=== PATIENT | male | born 1965 | race Caucasian/White ===

== ENCOUNTER 2020-12-22 21:41 | Emergency (ER) | payer OTHER ==
[~2020-12-22] VITALS: Ht 182.9 cm; Wt 108.9 kg
[2020-12-22 21:49] VITALS: BP 156/89
--- NOTE | 2020-12-22 21:54 | NUR ---
PT AMBULATED TO BED 3
--- NOTE | 2020-12-22 22:10 | NUR ---
55 Y/O MALE PRESENTS TO THE ED WITH COMPLAINTS OF LEFT EYE DISCHARGE. PT REPORTS THAT IT HAPPENED 2 HOURS AGO. PT REPORTS PUT IN EYE DROPS BUT CANNOT RECALL THE MEDICATION. LEFT EYE IS RED, HAS DISCHARGED, AND SWOLLEN. PT REPORT NO PAIN. PMH: HYPERTENSION ALLERGIES: NKA
[2020-12-22] MEDS ORDERED: POLY10SO OP (22:46)
[2020-12-22 22:58] VITALS: BP 156/89
--- NOTE | 2020-12-22 22:58 | NUR ---
Patient discharged with v/s stable. Written and verbal after care instructions given and explained. Patient alert, oriented and verbalized understanding of instructions. Ambulatory with steady gait. All questions addressed prior to discharge. ID band removed. Patient advised to follow up with PMD. Rx of POLYTRIM EYE DROPS given. Patient educated on indication of medication including possible reaction and side effects. Opportunity to ask questions provided and answered.
== END 2020-12-22 22:58 | disposition home or self-care (01) ==
LOC: MED 21:41
DX: H11.422 Conjunctival edema, left eye (principal); B96.89 Other specified bacterial agents as the cause of diseases classified elsewhere; H11.002 Unspecified pterygium of left eye; Z79.899 Other long term (current) drug therapy
CPT/HCPCS: 99283